=== PATIENT | male | born 1955 | race Caucasian/White ===

== ENCOUNTER → 2018-06-02 | Outpatient (CLI) | payer BC | LOC: CARD 08:53 | PROVIDERS: ATTEND Internal Medicine | DX: I73.9 Peripheral vascular disease, unspecified (principal) | CPT/HCPCS: 93925 ==

== ENCOUNTER → 2019-03-01 | Outpatient (CLI) | payer BC ==
--- NOTE | 2019-03-01 09:25 | Diagnostic Imaging Report ---
EXAM: US ABDOMEN COMPLETE DATE: 03/01/2019 8:25 AM INDICATION: Abdominal pain COMPARISON: None TECHNIQUE: Transverse and longitudinal carballo scale and color doppler sonographic images of the upper abdomen were obtained. FINDINGS: There is no evidence of fluid or masses seen in the area of clinical concern in the right lower quadrant. LIVER 17.0 cm in the right midclavicular line. Increased echogenicity of the liver with normal contour, no masses. SPLEEN 8.6 cm in maximum diameter. Normal echogenicity, no masses. GALLBLADDER Multiple small layering gallstones within the gallbladder. No gallbladder wall thickening (3 mm), or pericholecystic fluid. Negative sonographic Christian's sign. BILE DUCTS No intra nor extra-hepatic biliary dilation. Common bile duct measures 3 mm PANCREAS: Visualized portions are normal. RIGHT KIDNEY: 12.7 cm Echogenicity: Normal Collecting System: No hydronephrosis 1.2 x 0.8 cm hyperechoic structure at the upper pole of the right kidney without posterior acoustic shadowing. No associated vascularity. LEFT KIDNEY: 12.8 cm Echogenicity: Normal Collecting System: No hydronephrosis Stones: None Cyst/Mass: None VESSELS: Aorta: Visualized portions are within normal size limits. Mid and distal aorta not well visualized due to overlying bowel gas. Inferior Vena Cava: Visualized portions are normal Main Portal Vein: 1.1 cm, normal size with hepatopetal flow. FREE FLUID: None IMPRESSION: Hepatomegaly and hepatic steatosis. Cholelithiasis without sonographic evidence of cholecystitis. 1.2 x 0.8 cm hyperechoic structure at the right kidney upper pole without posterior acoustic shadowing or associated vascularity is nonspecific, possibly representing a nonobstructing calculus. Signed by: Joyce Chung MD on 03/01/2019 9:21 AM
== END ==
LOC: US 08:15
PROVIDERS: ATTEND Internal Medicine
DX: R10.9 Unspecified abdominal pain (principal)
CPT/HCPCS: 76700

== ENCOUNTER 2021-06-22 07:53 | Emergency (ER) | payer BC ==
[~2021-06-22] VITALS: Ht 170.2 cm; Wt 101.4 kg
[2021-06-22] MEDS ORDERED: PREDNISONE 20 MG TAB PO STA (08:19)
[2021-06-22] MEDS ORDERED: CEPHALEXIN500 MG PO (08:23)
[2021-06-22] MEDS ORDERED: PREDNISONE20 MG PO (08:23)
[2021-06-22] MEDS ORDERED: HYDROXYZINE HCL25 MG PO (08:23)
[2021-06-22] MEDS ORDERED: TRADJENTA5 MG (08:28)
[2021-06-22] MEDS ORDERED: LIPITOR20 MG PO (08:28)
[2021-06-22] MEDS ORDERED: PROPRANOLOL HCL10 MG PO (08:41)
[2021-06-22] MEDS ORDERED: DEXILANT60 MG (08:41)
[2021-06-22] MEDS ORDERED: ZOLPIDEM TARTRAT5 MG PO (08:41)
[2021-06-22] MEDS ORDERED: DEPAKOTE ER500 MG PO (08:41)
[2021-06-22] MEDS ORDERED: KLONOPIN0.5 MG PO (08:41)
[2021-06-22] MEDS ORDERED: SEROQUEL25 MG PO (08:41)
[2021-06-22] MEDS ORDERED: FAMOTIDINE40 MG (08:41)
[2021-06-22] MEDS ORDERED: BENZTROPINE MESY1 MG (08:41)
[2021-06-22] MEDS ORDERED: ABILIFY5 MG PO (08:41)
[2021-06-22] MEDS ORDERED: BENICAR HCT 401 EACH (08:41)
[2021-06-22] MEDS ORDERED: BENZONATATE100 MG PO (08:41)
[2021-06-22] MEDS ORDERED: TRIAMCINOLONE A15 G1 TOP (08:41)
[2021-06-22] MEDS ORDERED: METFORMIN HCL500 M2 PO (08:41)
[2021-06-22] MEDS ORDERED: TIZANIDINE HCL4 M1 PO (08:41)
[2021-06-22] MEDS ORDERED: AMLODIPINE BESY10 MG PO (08:41)
[2021-06-22] MEDS ORDERED: BACLOFEN10 MG PO (08:41)
[2021-06-22] MEDS ORDERED: UREA (08:41)
== END 2021-06-22 08:34 | disposition home or self-care (01) ==
LOC: FSED 08:06
DX: H01.006 Unspecified blepharitis left eye, unspecified eyelid (principal); H01.003 Unspecified blepharitis right eye, unspecified eyelid; L30.9 Dermatitis, unspecified; Z88.6 Allergy status to analgesic agent; Z79.84 Long term (current) use of oral hypoglycemic drugs
CPT/HCPCS: 99283; J7512